=== PATIENT | female | born 1960 | race Caucasian/White ===

== ENCOUNTER 2025-09-15 15:10 | Emergency (ER) | payer BC, MEDICAID, SELFPAY ==
[2025-09-15 15:16] VITALS: BP 149/78; PULSE 95; RESP 17; TEMP 36.3; O2SAT 97; BMI 25.7
[2025-09-15 16:22] LABS: Hematocrit 37.5 % (36-47); Hemoglobin 11.90 g/dL (11.27-16.99); Mean Corpuscular HGB Conc 31.7 g/dL (30-55); Mean Corpuscular Hemoglobin 30.4 pg (27-33); Mean Corpuscular Volume 95.7 fl (85-98); Nucleated Red Blood Cells % 0 %; Platelet Count 293 10^3/cmm (157-399); Red Blood Count 3.92 10^6/uL (3.85-5.65); White Blood Count 6.57 10^3/uL (3.29-11.43)
[2025-09-15 16:49] LABS: Alanine Aminotransferase < 5 U/L (0-33); Albumin Level 3.9 g/dL (3.5-5.2); Alkaline Phosphatase 133 U/L (35-105); Aspartate Amino Transferase 11 U/L (0-32); Blood Urea Nitrogen 10 mg/dL (8-23); Calcium 9.1 mg/dL (8.5-10.5); Carbon Dioxide 29 mmol/L (22-29); Chloride 100 mmol/L (98-107); Globulin 3.3 g/dL (1.3-4.6); Glucose 100 mg/dL (65-115); Osmolality Calculated 289 mOsm/kg (285-295); Sodium 140 mmol/L (136-145); Total Protein 7.2 g/dL (6.6-8.7)
[2025-09-15 17:16] LABS: Anion Gap 14.8 (5-19); Potassium 3.8 mmol/L (3.5-5.1)
--- NOTE | 2025-09-15 17:53 | CTR_ITS ---
PROCEDURE INFORMATION: Exam: CT Orbits With Contrast Exam date and time: 09/15/2025 7:31 PM Age: 64 years old Clinical indication: Eye pain; Bilateral TECHNIQUE: Imaging protocol: Computed tomography of the orbits with contrast. Radiation optimization: All CT scans at this facility use at least one of these dose optimization techniques: automated exposure control; mA and/or kV adjustment per patient size (includes targeted exams where dose is matched to clinical indication); or iterative reconstruction. Contrast material: [id number]; Contrast volume: 100 ml; Contrast route: INTRAVENOUS (IV); COMPARISON: No relevant prior studies available. RADIATION DOSE METRICS: Total DLP (mGy-cm): 421.89 FINDINGS: Paranasal sinuses: Normal. No air-fluid levels. Orbital cavities: The globes are normal. No retro-orbital abnormality on either side. Bones/joints: No acute fracture. Soft tissues: Mild subcutaneous edema and fat stranding overlying the left frontal bone and mild left-sided periorbital soft tissue swelling. CT/CT orbit BI w con [id number] IMPRESSION: 1. Mild subcutaneous edema and fat stranding overlying the left frontal bone and mild left-sided periorbital soft tissue swelling. 2. The globes are normal. No retro-orbital abnormality on either side.
[2025-09-15 17:56] VITALS: BP 130/72; PULSE 66; O2SAT 93
--- NOTE | 2025-09-15 18:24 | W.ED.EYEPROB ---
HPI - Eye Problem General: Chief complaint: Eye Problems Stated complaint: Lt eye inj Time Seen by Provider: 09/15/25 16:41 Source: patient Mode of arrival: ambulatory Limitations: no limitations History of Present Illness: 64-year-old female states that she has had she states his rash lesion over her left side of her face and eye has been going on for she states years but over the last week its gotten much worse. She is sent here by process control supervisor concerning for an orbital cellulitis has a history of squamous cell. She has slight pain denies any vision changes for me Related Data Allergies Allergy/AdvReac Type Severity Reaction Status Date / Time iodine Allergy Unknown Verified 09/15/25 15:20 Physical Exam Const: COMMON NORMALS: patient oriented x3 HENMT: COMMON NORMALS: normocephalic and atraumatic HEAD & SCALP: normocephalic and atraumatic OTHER: Appears to be skin erosion likely squamous cell to left upper side of the face Eye: COMMON NORMALS: Equal, round and reactive pupils present and EOMs intact bilaterally PUPIL: Yes Equal, round and reactive pupils present Neck/C-Spine: COMMON NORMALS: full ROM and supple Chest: COMMONS NORMALS: normal inspection of the chest and normal palpation of entire chest wall Resp: COMMON NORMALS: normal respiratory effort, No retractions, No use of accessory muscles and clear to auscultation bilaterally AUSCULTATION: clear to auscultation bilaterally Cardio: COMMON NORMALS: regular rate, regular rhythm and No murmurs present (Cardio) RATE: regular rate RHYTHM: regular rhythm GI: COMMON NORMALS: Normal to inspection, nondistended, normoactive bowel sounds present, Soft to palpation, non-tender and no masses PALPATION: Yes Soft to palpation Extremity: COMMON NORMALS: normal to inspection and full ROM Neuro: COMMON NORMALS: patient oriented x3, moves all extremities and no focal motor deficits Psych: COMMON NORMALS: mental status grossly normal, Normal thought process present and cooperative THOUGHT PROCESS: Normal thought process present Skin: COMMON NORMALS: no rashes or lesions noted and no wounds GENERAL SKIN EXAM: no rashes or lesions noted Course Vital Signs: Vital signs: Vital Signs Temperature 97.4 F L 09/15/25 15:16 Pulse Rate 79 09/15/25 19:02 Respiratory Rate 17 09/15/25 15:16 Blood Pressure 159/71 09/15/25 20:03 Pulse Oximetry 95 09/15/25 20:03 Oxygen Delivery Me thod Room Air 09/15/25 19:02 MDM - Eye Problem Medical Decision Making Patient presents for chronic wound to left side of the forehead patient has no signs of cellulitis or orbital cellulitis here blood work shows no significant abnormality did review CT findings as well. 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 She has no eye pain here no change in vision or eye here she has already been prescribed Augmentin along with ofloxacin eyedrops that she is to take. I did speak to process control supervisor Dr. Gibson who is cher follow back up with her after these findings. Lab Data I reviewed the patient's lab results. 09/15/25 16:16 09/15/25 16:[address] 09/15/25 17:53 IMPRESSION: 1. Mild subcutaneous edema and fat stranding overlying the left frontal bone and mild left-sided periorbital soft tissue swelling. 2. The globes are normal. No retro-orbital abnormality on either side. Laboratory Results WBC 6.57 10^3/uL (3.29-11.43) 09/15/25 16:16 RBC 3.92 10^6/uL (3.85-5.65) 09/15/25 16:16 Hgb 11.90 g/dL (11.27-16.99) 09/15/25 16:16 Hct 37.5 % (36-47) 09/15/25 16:16 MCV 95.7 fl (85-98) 09/15/25 16:16 MCH 30.4 pg (27-33) 09/15/25 16:16 MCHC 31.7 g/dL (30-55) 09/15/25 16:16 RDW 14.6 % (12.1-15.1) 09/15/25 16:16 Plt Count 293 10^3/cmm (157-399) 09/15/25 16:16 MPV 8.9 fL (7.4-10.4) 09/15/25 16:16 Neut % (Auto) 72.4 % 09/15/25 16:16 Lymph % (Auto) 16.9 % 09/15/25 16:16 [place] % (Auto) 8.4 % 09/15/25 16:16 Eos % (Auto) 1.4 % 09/15/25 16:16 Baso % (Auto) 0.9 % 09/15/25 16:16 Neut # (Auto) 4.76 10^3/uL (1.8-7.7) 09/15/25 16:16 Lymph # (Auto) 1.1 10^3/uL (0.8-4.8) 09/15/25 16:16 [place] # (Auto) 0.6 10^3/uL (0.2-0.9) 09/15/25 16:16 Eos # (Auto) 0.1 10^3/uL (0.0-0.8) 09/15/25 16:16 Baso # (Auto) 0.1 10^3/uL (0.0-0.1) 09/15/25 16:16 Nucleated RBC % (auto) 0 % 09/15/25 16:16 Nucleated RBCs # 0.0 /100WBC 09/15/25 16:16 ESR 11 mm/hr (0-15) 09/15/25 16:16 Sodium 140 mmol/L (136-145) 09/15/25 16:16 Potassium 3.8 mmol/L (3.5-5.1) 09/15/25 16:16 Chloride 100 mmol/L (98-107) 09/15/25 16:16 Carbon Dioxide 29 mmol/L (22-29) 09/15/25 16:16 Anion Gap 14.8 (5-19) 09/15/25 16:16 BUN 10 mg/dL (8-23) 09/15/25 16:16 Creatinine 0.7 mg/dL (0.5-0.9) 09/15/25 16:16 GFR Calculation 84.8 mL/min (90-130) L 09/15/25 16:16 Glucose 100 mg/dL (65-115) 09/15/25 16:16 Calculated Osmolality 289 mOsm/kg (285-295) 09/15/25 16:16 Calcium 9.1 mg/dL (8.5-10.5) 09/15/25 16:16 Total Bilirubin 1.2 mg/dL (0.15-1.2) 09/15/25 16:16 AST 11 U/L (0-32) 09/15/25 16:16 ALT < 5 U/L (0-33) 09/15/25 16:16 Alkaline Phosphatase 133 U/L (35-105) H 09/15/25 16:16 C-Reactive Protein 22.1 mg/L (0.0-4.9) H 09/15/25 16:16 Total Protein 7.2 g/dL (6.6-8.7) 09/15/25 16:16 Albumin 3.9 g/dL (3.5-5.2) 09/15/25 16:16 Globulin 3.3 g/dL (1.3-4.6) 09/15/25 16:16 All radiology interpretation(s) finalized by discharge Discharge Plan Discharge Patient Disposition: Home Clinical Impression: Chronic wound Condition: Stable Discharge Orders: Discharge ED (Routine); Ordered 09/15/25 Ordered By: Erica Kent Discharge Diet: Advance as tolerated Discharge Activity: Resume usual activity Patient Instructions: Acute Wound Care (ED) Print Language: Rw[place] Coding Level of Care Code ED Manager Of Distribution for Camron Disla
[2025-09-15 18:44] VITALS: BP 156/64; O2SAT 94
[2025-09-15 19:02] VITALS: BP 156/67; PULSE 79; O2SAT 93
[2025-09-15] MEDS: iohexol 350 mg/mL 500 mL Btl (per mL) IV (19:35)
[2025-09-15 20:03] VITALS: BP 159/71; O2SAT 95
== END 2025-09-15 20:27 | disposition home or self-care (01) ==
PROVIDERS: Emergency Provider Emergency Medicine
DX: S05.92XA Unspecified injury of left eye and orbit, initial encounter (principal); X58.XXXA Exposure to other specified factors, initial encounter
CPT/HCPCS: 36415; 70481; 80053; 85025; 85651; 86140; 87070; 99285